=== PATIENT | female | born 1950 | race Caucasian/White ===

== ENCOUNTER 2016-05-17 06:32 | Inpatient (IN) | payer MEDICAID ==
[2016-05-11 08:00] VITALS: Ht 152.4 cm; Wt 114.5 kg
[2016-05-11 08:44] VITALS: BP_SYST 126; RESP 20; TEMP 97.5
[2016-05-17] VITALS (24 sets, daily range): BP systolic 112–152; RESP 16–20; TEMP 97–98.5
[~2016-05-17] VITALS: Ht 152.4 cm; Wt 114.5 kg
[2016-05-17] MEDS ORDERED: CEFAZOLIN 2,000 MG in SODIUM CHLORIDE 0.9% 100 ML IV ONE (06:40)
[2016-05-17] MEDS ORDERED: GLYCOPYRROLATE 0.2 MG/ML VIAL IV ONE ×2 (07:25→13:37)
[2016-05-17] MEDS ORDERED: MIDAZOLAM 2 MG/2 ML INJ IV ONE ×2 (07:25→08:20)
[2016-05-17] MEDS ORDERED: LACT RINGERS 1,000 ML IV SCH (07:25)
[2016-05-17] MEDS ORDERED: LIDOCAINE 1% BUFFERED 1 ML SYR INTRADERM PRN (07:25)
[2016-05-17] MEDS ORDERED: MEPERIDINE 25 MG/ML IV ONE (07:25)
[2016-05-17] MEDS ORDERED: LIDOCAINE 1% MDV 20 ML ONE (08:06)
[2016-05-17] MEDS ORDERED: MIDAZOLAM 2 MG/2 ML INJ ONE (08:08)
[2016-05-17] MEDS ORDERED: ONDANSETRON 4 MG VIAL IV PRN ×2 (08:40→10:20)
[2016-05-17] MEDS ORDERED: MORPHINE 2 MG/ML SYR IV PRN (08:40)
[2016-05-17] MEDS ORDERED: MORPHINE 4 MG/ML SYR IV PRN (08:40)
[2016-05-17] MEDS ORDERED: OXYCODONE 5 MG TAB PO PRN (08:40)
[2016-05-17] MEDS ORDERED: DILAUDID 1 MG/ML AMP IV PRN ×2 (08:40→10:20)
[2016-05-17] MEDS ORDERED: MEPERIDINE 25 MG/ML IV PRN (08:40)
[2016-05-17] MEDS ORDERED: MAG HYDROX 30 ML UDC PO PRN (10:20)
[2016-05-17] MEDS ORDERED: SALINE FLUSH 10 ML FLUSH PRN (10:20)
[2016-05-17] MEDS ORDERED: ZOLPIDEM 5 MG TAB PO PRN (10:20)
[2016-05-17] MEDS ORDERED: ONDANSETRON 4 MG TAB PO PRN (10:20)
[2016-05-17] MEDS ORDERED: D5-1/2-NS W/KCL 20MEQ/L 1,000 ML IV SCH (10:20)
[2016-05-17] MEDS ORDERED: KETOROLAC 30 MG/ML VIAL IV PRN (10:20)
[2016-05-17] MEDS ORDERED: BUPIVACA/EPI 0.5% 50ML EPIDURAL ONE (11:15)
[2016-05-17] MEDS ORDERED: LIDOCAINE 1% 20ML NERVEBLOCK ONE (11:20)
[2016-05-17] MEDS ORDERED: BACITRACIN 50,000 UNITS INJ IRRIG ONE (13:27)
[2016-05-17] MEDS ORDERED: FENTANYL 100 MCG/2 ML AMP IV ONE (13:37)
[2016-05-17] MEDS ORDERED: DEXAMETHASONE 4 MG/ML VIAL IV ONE (13:37)
[2016-05-17] MEDS ORDERED: NEOSTIGMINE 10 MG/10 ML VIAL IV ONE (13:37)
[2016-05-17] MEDS ORDERED: METOPROLOL 5 MG/5 ML VIAL IV ONE (13:37)
[2016-05-17] MEDS ORDERED: ROCURONIUM 50 MG VIAL IV ONE (13:37)
[2016-05-17] MEDS ORDERED: ONDANSETRON 4 MG VIAL IV PUSH ONE (13:37)
[2016-05-17] MEDS ORDERED: PROPOFOL 20 ML VIAL IV ONE (13:37)
[2016-05-17] MEDS ORDERED: LIDOCAINE 2% SYR 5 ML IV ONE (13:37)
[2016-05-17] MEDS ORDERED: SUCCINYLCHOLINE 20 MG/ML VL IV ONE (13:37)
[2016-05-17] MEDS ORDERED: ACETAMINOPHEN 1,000 MG/100 ML IV ONE (13:37)
[2016-05-17] MEDS: amLODIPine 5 MG TAB PO SCH (14:06)
[2016-05-17] MEDS: PANTOPRAZOLE 40 MG TAB PO SCH (14:06)
[2016-05-17] MEDS: CEFAZOLIN 2,000 MG in SODIUM CHLORIDE 0.9% 100 ML IV SCH ×2 (14:49→21:12)
[2016-05-17] MEDS ORDERED: LISINOPRIL/HCTZ 10/12.5 TAB PO SCH (21:00)
[2016-05-17] MEDS ORDERED: CYCLOBENZAPRINE 10 MG TAB PO PRN (21:00)
[2016-05-17] MEDS: DOCUSATE SOD 100 MG CAP PO SCH (21:11)
[2016-05-17] MEDS: SENNA 8.6 MG TAB PO SCH (21:11)
[2016-05-17] MEDS: SALINE FLUSH 10 ML FLUSH SCH (21:12)
[2016-05-18] MEDS: CEFAZOLIN 2,000 MG in SODIUM CHLORIDE 0.9% 100 ML IV SCH ×2 (02:44→09:01)
[2016-05-18 04:22] VITALS: BP_SYST 115; RESP 18; TEMP 98.8
[2016-05-18] MEDS ORDERED: SODIUM CHLORIDE 0.9% FLUSH BAG 500 ML IV SCH (06:00)
[2016-05-18] MEDS: PANTOPRAZOLE 40 MG TAB PO SCH (06:15)
[2016-05-18 08:00] VITALS: BP_SYST 148; RESP 16; TEMP 98
[2016-05-18] MEDS: SALINE FLUSH 10 ML FLUSH SCH (08:59)
[2016-05-18] MEDS: SENNA 8.6 MG TAB PO SCH (09:00)
[2016-05-18] MEDS: amLODIPine 5 MG TAB PO SCH (09:00)
[2016-05-18] MEDS ORDERED: MULTIVITS/MINERALS (THERAGRAN M) TAB PO SCH (09:00)
[2016-05-18] MEDS ORDERED: POLYETHYLENE GLYCOL 17 GM PACKET PO SCH (09:00)
[2016-05-18] MEDS ORDERED: MAG HYDROX 30 ML UDC PO SCH (09:00)
[2016-05-18] MEDS: DOCUSATE SOD 100 MG CAP PO SCH (09:00)
[2016-05-18] MEDS ORDERED: CEPHALEXIN 500 MG CAP PO ONE (09:50)
[2016-05-18 10:26] VITALS: BP_SYST 148; RESP 16; TEMP 98
[2016-05-18 10:36] VITALS: BP_SYST 148; RESP 16; TEMP 98
[2016-05-18] MEDS ORDERED: BISACODYL 10 MG SUPP RECTAL PRN (11:20)
[2016-05-18 11:29] VITALS: BP_SYST 138; RESP 18; TEMP 97.3
== END 2016-05-18 12:32 | disposition home or self-care (01) | DRG 483 ==
LOC: ENRESERVTM → ENRESERVDT → SDS 06:32 → ENPENDDIS 06:32 → 2NO 10:54
PROVIDERS: ADMIT Internal Medicine; ATTEND Internal Medicine
PROC: 0RRK00Z Replacement of Left Shoulder Joint with Reverse Ball and Socket Synthetic Substitute, Open Approach (ICD-10-PCS; principal; 2016-05-17 08:04)
DX: M19.012 Primary osteoarthritis, left shoulder (principal); Z68.42 Body mass index [BMI] 45.0-49.9, adult; I10 Essential (primary) hypertension; E11.9 Type 2 diabetes mellitus without complications; Z85.528 Personal history of other malignant neoplasm of kidney; K21.9 Gastro-esophageal reflux disease without esophagitis; E66.9 Obesity, unspecified
CPT/HCPCS: 36415; 80048; 82947; 85014; 85018; 85025; 85610; 85730; 86850; 86900; 86901; 93005; 94762; 94799